=== PATIENT | male | born 1940 | race Caucasian/White ===

== ENCOUNTER 2016-03-27 17:20 | Inpatient (IN) ==
[2016-03-27] MEDS ORDERED: SOLU-MEDROL 125 MG IVP STA (17:23)
[2016-03-27] MEDS ORDERED: DUONEB NEB STA (17:24)
[2016-03-27 17:30] VITALS: BMI 19.0
[2016-03-27 17:38] LABS: BASOPHILS # (AUTO) 0.1 K/uL (0-0.2); EOSINOPHILS # (AUTO) 0.3 K/ul (0.0-0.7); EOSINOPHILS % (AUTO) 2.6 % (0.0-7.0); HEMATOCRIT 40.3 % (42.0-52.0); HEMOGLOBIN 13.2 g/dl (14.0-18.0); IMMATURE GRANULOCYTE % (AUTO) 0.4 % (0.0-5.0); LYMPHOCYTES # (AUTO) 1.2 K/uL (0.60-3.4); LYMPHOCYTES % (AUTO) 12.6 (10.0-50.0); MEAN CORPUSCULAR HGB CONC 32.8 (31.8-35.4); MEAN CORPUSCULAR VOLUME 94.6 fl (80.0-94.0); MONOCYTES # (AUTO) 0.7 K/uL (0.4-2.0); NEUTROPHILS # (AUTO) 7.4 K/ul (2.0-6.9); NEUTROPHILS % (AUTO) 76.4; PLATELET COUNT 259 10^3/uL (140-440); RED BLOOD COUNT 4.26 10^6/ul (4.70-6.10); WHITE BLOOD COUNT 9.68 K/ul (4.2-10.2)
[2016-03-27 18:14] LABS: ALBUMIN/GLOBULIN RATIO 1.21; ANION GAP 14.9; BILIRUBIN,TOTAL 0.41 mg/dL (0.00-1.20); BUN/CREATININE RATIO 19.19; CALCIUM 9.7 mg/dL (8.2-10.2); CREATININE 1.98 mg/dL (0.60-1.10); POTASSIUM 4.9 mmol/L (3.5-5.1); TOTAL PROTEIN 7.3 g/dL (5.8-8.1); TROPONIN I 0.022 ng/ml (0.0000-0.4000)
--- NOTE | 2016-03-27 18:14 | ED.PDOC ---
General ED Provider: Dr. KELSEY SARAVIA Chief Complaint: Respiratory Complaint Stated Complaint: shortness of breath Time Seen by Physician: 17:25 Mode of Arrival: Walk-In Information Source: Patient Exam Limitations: No limitations Primary Care Provider: RAY SORENSEN Nursing and Triage Documentation Reviewed and Agree: Yes Review of Systems - Review Of Systems Constitutional: Reports: Malaise Eyes: Reports: No symptoms Ears, Nose, Mouth, Throat: Reports: No symptoms Respiratory: Reports: Short of air, Wheezing Cardiac: Reports: No symptoms GI: Reports: No symptoms : Reports: No symptoms Musculoskeletal: Reports: No symptoms Skin: Reports: No symptoms Neurological: Reports: No symptoms Endocrine: Reports: No symptoms Hematologic/Lymphatic: Reports: No symptoms All Other Systems: Reviewed and Negative Past Medical History - Past Medical History Previously Healthy: No Endocrine: Reports: None Cardiovascular: Reports: None, Unknown (fast heart rate) Respiratory: Reports: COPD Hematological: Reports: None Gastrointestinal: Reports: None, Gallstones Genitourinary: Reports: Kidney stones Neuro/Psych: Reports: None Musculoskeletal: Reports: None Cancer: Reports: None - Surgical History General Surgical History: Reports: Stent (CARDIAC STENT X 2), Other ( PARATHYROID SX , SX FOR KIDNEY STONE), Unknown - Family History Family History: Reports: Unknown - Social History Smoking Status: Former smoker Hx Substance Use: No Alcohol Screening: None - Immunizations Tetanus Shot up to Date: Yes Physical Exam - Physical Exam Appearance: Well-appearing, No pain distress, Well-nourished Eyes: MORGAN, EOMI, Conjunctiva clear ENT: Ears normal, Nose normal, Oropharynx normal Respiratory: Wheezes Cardiovascular: RRR, Pulses normal, No rub, No murmur GI/: Soft, Nontender, No masses, Bowel sounds normal, No Organomegaly Musculoskeletal: Normal strength, ROM intact, No edema, No calf tenderness Skin: Warm, Dry, Normal color Neurological: Sensation intact, Motor intact, Reflexes intact, Cranial nerves intact, Alert, Oriented Psychiatric: Affect appropriate, Mood appropriate Interpretation - Radiology Interpretation Radiology Interpretation By: ED Physician Radiology Results: Negative Exam Interpreted: CXR Physician Notification - Case Discussed Physician Notified: relife Time of Notification: 19:00 Critical Care Note - Critical Care Note Total Time (mins): 0 Course - Course Hematology/Chemistry: 03/31/16 06:30 03/29/16 05:30 Orders, Labs, Meds: Lab Review 03/27/16 03/27/16 03/27/16 17:00 17:34 18:00 WBC 9.68 RBC 4.26 L Hgb 13.2 L Hct 40.3 L MCV 94.6 H MCH 31.0 MCHC 32.8 RDW Coeff of Marleni 13.6 Plt Count 259 Immature Gran % (Auto) 0.4 Neut % (Auto) 76.4 Lymph % (Auto) 12.6 Hale % (Auto) 7.0 Eos % (Auto) 2.6 Baso % (Auto) 1.0 Immature Gran # (Auto) 0.0 Neut # 7.4 H Lymph # 1.2 Hale # 0.7 Eos # 0.3 Baso # 0.1 D-Dimer 714.03 H Sodium 141 Potassium 4.9 Chloride 104 Carbon Dioxide 27 Anion Gap 14.9 BUN 38 H Creatinine 1.98 H Estimated GFR (MDRD) 33.00 BUN/Creatinine Ratio 19.19 Glucose 104 Calcium 9.7 Total Bilirubin 0.41 AST 26 ALT 35 Alkaline Phosphatase 80 Total Creatine Kinase 45 Troponin I 0.0220 B-Natriuretic Peptide 29 Total Protein 7.3 Albumin 4.0 Globulin 3.3 Albumin/Globulin Ratio 1.21 Influenza A (Rapid) Negative Influenza B (Rapid) Negative Orders Category Date Time Status ADMIT PATIENT INPATIENT .TO [facility] (MONITORED BED) ADMISSION 03/27/16 18: 15 Active EKG-(ED ONLY) Stat CARDIO 03/27/16 17:23 Completed EKG-(IP & OP ONLY) DAILY CARDIO 03/28/16 06:00 Completed EKG-(IP & OP ONLY) DAILY CARDIO 03/29/16 06:00 Completed EKG-(IP & OP ONLY) DAILY CARDIO 03/30/16 06:00 Completed NEBULIZER TREATMENT Routine CARDIO 03/27/16 18:17 Completed NEBULIZER TREATMENT Stat CARDIO 03/27/16 17:24 Completed OXYGEN Routine CARDIO 03/27/16 18:16 Completed ACTIVITY .Complete BR CARE 03/27/16 18:15 Active TELEMETRY MONITORING TELE CARE 03/27/16 18:15 Active VITAL SIGNS Q4HR CARE 03/27/16 18:15 Active REGULAR DIET DIETARY 03/27/16 Dinner Completed ED IV/MEDIPORT/POWERPORT .ONCE EMERGENCY 03/27/16 17:23 Active B-TYPE NATRIURETIC PEPTIDE Stat LAB 03/27/16 17:00 Completed CBC W/ AUTO DIFF DAILY@0600 LAB 03/28/16 01:00 Completed CBC W/ AUTO DIFF DAILY@0600 LAB 03/29/16 05:30 Completed CBC W/ AUTO DIFF Stat LAB 03/27/16 17:34 Completed COMPREHENSIVE METABOLIC PANEL DAILY@0600 LAB 03/28/16 01:00 Completed COMPREHENSIVE METABOLIC PANEL DAILY@0600 LAB 03/29/16 05:30 Completed COMPREHENSIVE METABOLIC PANEL Stat LAB 03/27/16 17:34 Completed CREATINE KINASE Q8H LAB 03/28/16 01:00 Completed CREATINE KINASE Q8H LAB 03/28/16 08:30 Completed CREATINE KINASE Stat LAB 03/27/16 17:34 Completed D-DIMER Stat LAB 03/27/16 17:00 Completed MOLECULAR GROUP A STREP Stat LAB 03/27/16 18:00 Completed RAPID FLU A/B Stat LAB 03/27/16 18:00 Completed STREP SCREEN Stat LAB 03/27/16 18:00 Completed TROPONIN I Q8H LAB 03/28/16 01:00 Completed TROPONIN I Q8H LAB 03/28/16 08:30 Completed TROPONIN I Stat LAB 03/27/16 17:34 Completed Ceftriaxone Sodium [Rocephin] 1 gm MEDS 03/28/16 09:00 Discontinued 0.9 % Sodium Chloride [Sodium Chloride] 50 ml IV DAILY Diltiazem HCl [Cardizem Cd] MEDS 03/28/16 09:00 Discontinued 120 mg PO DAILY Ipratropium/Albuterol Neb [Duoneb] MEDS 03/27/16 17:24 Discontinued 1 vial NEB ONCE STA Ipratropium/Albuterol Neb [Duoneb] MEDS 03/28/16 00:00 Discontinued 1 vial NEB RTQ6H Methylprednisolone Sod Succ/Pf [Solu-Medrol 125 mg] MEDS 03/27/16 17:23 Discontinued 125 mg IVP ONCE STA Methylprednisolone Sod Succ/Pf [Solu-Medrol 125 mg] MEDS 03/27/16 21:00 Discontinued 40 mg IVP Q12HR Metoprolol Succinate [Toprol Xl] MEDS 03/28/16 09:00 Discontinued 25 mg PO DAILY Simvastatin [Zocor] MEDS 03/28/16 09:00 Discontinued 40 mg PO DAILY Sodium Chloride 0.9% [Sodium Chloride] 1,000 ml MEDS 03/27/16 18:30 Discontinued IV 75 mls/hr CHEST, 1V AP ONLY Stat RADS 03/27/16 17:23 Completed Medications Discontinued Medications Generic Name Dose Route Start Last Admin Trade Name Freq PRN Reason Stop Dose Admin Albuterol/Ipratropium 1 vial 03/27/16 17:24 03/27/16 18:26 Duoneb NEB 03/27/16 17:25 1 vial ONCE STA Administration Albuterol/Ipratropium 1 vial 03/28/16 00:00 04/01/16 11:04 Duoneb NEB 1 vial RTQ6H LEONOR Administration Diltiazem HCl 120 mg 03/28/16 09:00 04/01/16 08:20 Cardizem Cd PO 120 mg DAILY LEONOR Administration Guaifenesin 600 mg 03/31/16 17:30 04/01/16 08:20 Mucinex PO 600 mg Q12HR LEONOR Administration Ceftriaxone Sodium 1 gm/ 50 mls @ 75 mls/hr 03/28/16 09:00 04/01/16 08:20 Sodium Chloride IV 75 mls/hr DAILY LEONOR Administration Sodium Chloride 1,000 mls @ 75 mls/hr 03/27/16 18:30 03/29/16 13:19 Sodium Chloride IV 75 mls/hr .[id number] LEONOR Administration Methylprednisolone Sodium Succinate 125 mg 03/27/16 17:23 03/27/16 18:25 Solu-Medrol 125 Mg IVP 03/27/16 17:24 125 mg ONCE STA Administration Methylprednisolone Sodium Succinate 40 mg 03/27/16 21:00 03/27/16 21:45 Solu-Medrol 125 Mg IVP 40 mg Q12HR LEONOR Administration Methylprednisolone Sodium Succinate 40 mg 03/28/16 09:00 03/28/16 08:31 Solu-Medrol 40 Mg IVP 40 mg Q12HR LEONOR Administration Methylprednisolone Sodium Succinate 125 mg 03/28/16 21:00 03/28/16 21:28 Solu-Medrol 40 Mg IVP 03/29/16 10:00 125 mg Q12HR LEONOR Administration Methylprednisolone Sodium Succinate 125 mg 03/29/16 09:00 03/29/16 08:44 Solu-Medrol 125 Mg IVP 125 mg Q12HR LEONOR Administration Methylprednisolone Sodium Succinate 70 mg 03/29/16 21:00 Solu-Medrol 125 Mg IVP Q12HR LEONOR Methylprednisolone Sodium Succinate 125 mg 03/29/16 21:00 03/29/16 22:15 Solu-Medrol 125 Mg IVP 03/29/16 21:01 125 mg ONCE ONE Administration Methylprednisolone Sodium Succinate 70 mg 03/30/16 09:00 Solu-Medrol 125 Mg IVP Q12HR LEONOR Methylprednisolone Sodium Succinate 75 mg 03/30/16 08:43 03/31/16 13:09 Solu-Medrol 125 Mg IVP 75 mg Q8HR LEONOR Administration Metoprolol Succinate 25 mg 03/28/16 09:00 04/01/16 08:20 Toprol Xl PO 25 mg DAILY LEONOR Administration Omeprazole 20 mg 03/28/16 07:30 04/01/16 05:34 Prilosec PO 20 mg QDAC LEONOR Administration Prednisone 20 mg 03/31/16 17:30 04/01/16 08:24 Prednisone PO 20 mg BIDWM LEONOR Administration Fluticasone/Salmeterol 1 puff 03/28/16 21:00 04/01/16 08:20 Advair 250-50 Diskus IH 1 puff BID LEONOR Administration Simvastatin 40 mg 03/28/16 09:00 04/01/16 08:21 Zocor PO 40 mg DAILY LEONOR Administration Sodium Chloride 1 syr 03/30/16 05:00 04/01/16 05:34 Saline Flush IVF 1 syr Q8HR LEONOR Administration Sodium Chloride 1 syr 03/29/16 21:52 03/31/16 13:10 Saline Flush IVF 1 syr PRN PRN Administration keep IV patent Vital Signs: Temp Pulse Resp BP Pulse Ox 03/27/16 17:22 98.3 F 124 H 28 H 134/82 94 L Departure - Departure Time of Disposition: 12:00 Disposition: ADMITTED INPATIENT Discharge Problem: COPD exacerbation Condition: Good Pt referred to PMD for follow-up: No Allergies/Adverse Reactions: Allergies nitroglycerin Adverse Reaction (Intermediate, Verified 03/27/16 17:36) Unknown zolpidem [From Ambien] Adverse Reaction (Intermediate, Verified 03/27/16 17:36) Dizziness PATIENT WAS CONFUSED, HALLUCINATED, AND WAS AGITATED. Home Medications: Ambulatory Orders Metoprolol Succinate [Toprol Xl] 1 tab PO DAILY 12/31/13 Omeprazole Magnesium [Prilosec Otc] 1 tab PO DAILY 12/31/13 Simvastatin [Zocor] 1 tab PO DAILY 12/31/13 Diltiazem HCl [Cardizem Cd] 120 mg PO DAILY 02/06/16 Fluticasone/Salmeterol 250/50 [Advair 250-50 Diskus] 1 puff IH BID #1 02/09/16 Guaifenesin/Codeine Phosphate [Robitussin AC Syrup] 10 ml PO Q6H PRN #240 ml Ipratropium [place] [Atrovent Hfa] 1 puff IH BID PRN #1 hfa.aer.ad 03/14/16 Albuterol Sulfate [Proair Hfa] 2 puff IH QID PRN #1 puff 04/01/16 Ipratropium/Albuterol Neb [Duoneb] 1 vial NEB RTQ6H #1 vial.neb 04/01/16
[2016-03-27 18:42] LABS: FLU INTERNAL QC INTERNAL QC VALID; RAPID FLU A NEGATIVE (NEGATIVE); RAPID FLU B NEGATIVE (NEGATIVE)
--- NOTE | 2016-03-27 18:47 | DI ---
EXAM: Chest, one-view HISTORY: Cough FINDINGS: Cardiac and mediastinal contours are normal. Pulmonary vasculature is normal. Lungs are clear. The lungs are markedly hyperexpanded. Bony thorax shows no acute findings. IMPRESSION: Chronic obstructive pulmonary disease. No acute findings.
[2016-03-27] MEDS ORDERED: SOLU-MEDROL 125 MG IVP SCH (21:00)
[2016-03-27] MEDS ORDERED: SOLU-MEDROL 125 MG ONE (21:18)
[2016-03-27] MEDS: SODIUM CHLORIDE 1,000 ML IV SCH (22:53)
[2016-03-27] MEDS: DUONEB NEB SCH (23:54)
[2016-03-28 01:26] LABS: BASOPHILS % (AUTO) 0.5 % (0.0-3.0); HEMATOCRIT 36.5 % (42.0-52.0); HEMOGLOBIN 11.7 g/dl (14.0-18.0); IMMATURE GRANULOCYTE % (AUTO) 0.5 % (0.0-5.0); LYMPHOCYTES # (AUTO) 0.5 K/uL (0.60-3.4); LYMPHOCYTES % (AUTO) 7.3 (10.0-50.0); MEAN CORPUSCULAR HEMOGLOBIN 30.7 pg (27.0-31.0); MEAN CORPUSCULAR HGB CONC 32.1 (31.8-35.4); MEAN CORPUSCULAR VOLUME 95.8 fl (80.0-94.0); MONOCYTES # (AUTO) 0.1 K/uL (0.4-2.0); MONOCYTES % (AUTO) 0.8 (0-10); NEUTROPHILS # (AUTO) 5.8 K/ul (2.0-6.9); NEUTROPHILS % (AUTO) 90.9; PLATELET COUNT 218 10^3/uL (140-440); RED BLOOD COUNT 3.81 10^6/ul (4.70-6.10); WHITE BLOOD COUNT 6.34 K/ul (4.2-10.2)
[2016-03-28 01:58] LABS: ALBUMIN 3.3 g/dL (3.4-5.0); ALBUMIN/GLOBULIN RATIO 1.22; BILIRUBIN,TOTAL 0.38 mg/dL (0.00-1.20); BUN/CREATININE RATIO 21.6; CALCIUM 8.8 mg/dL (8.2-10.2); CREATININE 1.99 mg/dL (0.60-1.10)
[2016-03-28 02:05] LABS: TROPONIN I 0.021 ng/ml (0.0000-0.4000)
[2016-03-28] MEDS: DUONEB NEB SCH ×4 (05:28→23:44)
[2016-03-28] MEDS: ROCEPHIN 1 GM in SODIUM CHLORIDE 50 ML IV SCH (08:04)
[2016-03-28] MEDS: ZOCOR PO SCH (08:04)
[2016-03-28] MEDS: CARDIZEM CD PO SCH (08:04)
[2016-03-28] MEDS: PRILOSEC PO SCH (08:04)
[2016-03-28] MEDS: TOPROL XL PO SCH (08:04)
[2016-03-28] MEDS ORDERED: NON-FORMULARY MEDICATION (Omeprazole Magnesium [Prilosec Otc] 1 TAB) PO SCH (09:00)
[2016-03-28] MEDS ORDERED: SOLU-MEDROL 40 MG IVP SCH ×2 (09:00→21:00)
[2016-03-28 09:45] LABS: TROPONIN I 0.023 ng/ml (0.0000-0.4000)
[2016-03-28] MEDS: SODIUM CHLORIDE 1,000 ML IV SCH (11:45)
[2016-03-28] MEDS ORDERED: SOLU-MEDROL 125 MG ONE (21:25)
[2016-03-28] MEDS: ADVAIR 250-50 DISKUS IH SCH (21:29)
[2016-03-29] MEDS: DUONEB NEB SCH ×4 (05:03→22:07)
[2016-03-29] MEDS: PRILOSEC PO SCH (05:41)
[2016-03-29 06:09] LABS: BASOPHILS % (AUTO) 0.1 % (0.0-3.0); HEMATOCRIT 29.7 % (42.0-52.0); HEMOGLOBIN 9.4 g/dl (14.0-18.0); IMMATURE GRANULOCYTE % (AUTO) 0.6 % (0.0-5.0); LYMPHOCYTES # (AUTO) 0.6 K/uL (0.60-3.4); LYMPHOCYTES % (AUTO) 4.3 (10.0-50.0); MEAN CORPUSCULAR HEMOGLOBIN 30.4 pg (27.0-31.0); MEAN CORPUSCULAR HGB CONC 31.6 (31.8-35.4); MEAN CORPUSCULAR VOLUME 96.1 fl (80.0-94.0); MONOCYTES # (AUTO) 0.2 K/uL (0.4-2.0); MONOCYTES % (AUTO) 1.6 (0-10); NEUTROPHILS # (AUTO) 12.7 K/ul (2.0-6.9); NEUTROPHILS % (AUTO) 93.4; PLATELET COUNT 216 10^3/uL (140-440); RED BLOOD COUNT 3.09 10^6/ul (4.70-6.10); WHITE BLOOD COUNT 13.63 K/ul (4.2-10.2)
[2016-03-29 06:34] LABS: ALBUMIN 2.9 g/dL (3.4-5.0); ALBUMIN/GLOBULIN RATIO 1.26; ANION GAP 9.7; BILIRUBIN,TOTAL 0.18 mg/dL (0.00-1.20); BUN/CREATININE RATIO 34.05; CALCIUM 8.4 mg/dL (8.2-10.2); CREATININE 1.38 mg/dL (0.60-1.10); POTASSIUM 4.7 mmol/L (3.5-5.1); TOTAL PROTEIN 5.2 g/dL (5.8-8.1)
[2016-03-29] MEDS: ADVAIR 250-50 DISKUS IH SCH ×2 (08:44→20:18)
[2016-03-29] MEDS: TOPROL XL PO SCH (08:45)
[2016-03-29] MEDS: ZOCOR PO SCH (08:45)
[2016-03-29] MEDS: ROCEPHIN 1 GM in SODIUM CHLORIDE 50 ML IV SCH (08:45)
[2016-03-29] MEDS: CARDIZEM CD PO SCH (08:45)
[2016-03-29] MEDS ORDERED: SOLU-MEDROL 125 MG IVP SCH ×2 (09:00→21:00)
[2016-03-29] MEDS: SODIUM CHLORIDE 1,000 ML IV SCH ×2 (13:19)
[2016-03-29] MEDS ORDERED: SOLU-MEDROL 125 MG IVP ONE (21:00)
[2016-03-30] MEDS: DUONEB NEB SCH ×4 (05:20→22:20)
[2016-03-30] MEDS: PRILOSEC PO SCH (05:38)
[2016-03-30] MEDS: ZOCOR PO SCH (08:28)
[2016-03-30] MEDS: ADVAIR 250-50 DISKUS IH SCH ×2 (08:28→20:07)
[2016-03-30] MEDS: TOPROL XL PO SCH (08:28)
[2016-03-30] MEDS: CARDIZEM CD PO SCH (08:29)
[2016-03-30] MEDS: ROCEPHIN 1 GM in SODIUM CHLORIDE 50 ML IV SCH (08:29)
[2016-03-30] MEDS ORDERED: SOLU-MEDROL 125 MG IVP SCH (09:00)
[2016-03-30] MEDS: SOLU-MEDROL 125 MG IVP SCH ×2 (12:52→20:07)
[2016-03-31] MEDS: DUONEB NEB SCH ×4 (05:29→22:15)
[2016-03-31] MEDS: PRILOSEC PO SCH (05:35)
[2016-03-31] MEDS: SOLU-MEDROL 125 MG IVP SCH ×2 (05:43→13:09)
[2016-03-31 07:46] LABS: HEMATOCRIT 29.9 % (42.0-52.0); HEMOGLOBIN 9.4 g/dl (14.0-18.0); IMMATURE RETIC FRACTION 16.8; RETICULOCYTE % 1.71 %
[2016-03-31] MEDS: TOPROL XL PO SCH (08:34)
[2016-03-31] MEDS: CARDIZEM CD PO SCH (08:34)
[2016-03-31] MEDS: ADVAIR 250-50 DISKUS IH SCH ×2 (08:34→20:10)
[2016-03-31] MEDS: ZOCOR PO SCH (08:34)
[2016-03-31] MEDS: ROCEPHIN 1 GM in SODIUM CHLORIDE 50 ML IV SCH (08:34)
[2016-03-31 08:46] LABS: FERRITIN 541.52 ng/mL (21.81-274.66); FOLATE 9.8 ng/mL (3.1-20.5)
[2016-03-31] MEDS ORDERED: PREDNISONE ONE (17:13)
[2016-03-31] MEDS: MUCINEX PO SCH (17:15)
[2016-03-31] MEDS: PREDNISONE PO SCH (17:22)
[2016-04-01] MEDS: DUONEB NEB SCH ×2 (05:04→11:04)
[2016-04-01] MEDS: PRILOSEC PO SCH (05:34)
[2016-04-01] MEDS: ROCEPHIN 1 GM in SODIUM CHLORIDE 50 ML IV SCH (08:20)
[2016-04-01] MEDS: ADVAIR 250-50 DISKUS IH SCH (08:20)
[2016-04-01] MEDS: TOPROL XL PO SCH (08:20)
[2016-04-01] MEDS: CARDIZEM CD PO SCH (08:20)
[2016-04-01] MEDS: MUCINEX PO SCH (08:20)
[2016-04-01] MEDS: ZOCOR PO SCH (08:21)
[2016-04-01] MEDS: PREDNISONE PO SCH (08:24)
[2016-04-01 10:04] VITALS: BP 123/65; TEMP 97.8
--- NOTE | 2016-04-01 12:49 | HP ---
SOURCE: The source of this information is prior knowledge of the patient, review of his current chart as well as discussion with he and his ; all considered reliable. PATIENT PROFILE: Mr. Estrada is a 75-year-old male resident of [place]; he was cooperative. 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 He has chronic respiratory failure and uses continuous oxygen. He has coronary artery disease. He was hospitalized here February 04 for a similar presentation; treated with significant levels of steroids. He slowly improved over 3 to 4 days. These were weaned slowly; he seemed initially to tolerate that. Approximately on the 13 of March he started developing increasing cough and wheeze; he presented to the ER where he was given brief steroids again. This helped briefly; then he presented back to the ER yesterday feeling like he could not get his breath. He had chest x-rays that showed only emphysema. He was admitted for COPD exacerbation. On 40 mg of steroids he had seen little improvement yet. He has a cough; occasionally productive, nonbloody. He has no exertional chest pain, palpitations or ankle edema. PAST HISTORY: CHILDHOOD: Unremarkable. ALLERGIES/INTOLERANCE: DEMEROL (nausea, vomiting and flushing), NITROGLYCERIN CURRENT MEDICATIONS: 1. Spiriva 18 mcg inhaled a day 2. Bactrim DS b.i.d. 3. Zocor 40 mg a day 4. Prilosec 20 mg a day 5. Toprol 25 mg XR a day 6. Duonebs q.6hr p.r.n. 7. Atrovent HFA one puff b.i.d. p.r.n. 8. Robitussin AC 10 cc q.6hr p.r.n. 9. Advair 250/50 one inhalation twice a day 10. Cardizem 120 a day 11. ProAir HFA two puffs q.i.d. and two puffs q.4hr p.r.n. HOSPITALIZATIONS/SURGERIES/PROCEDURES: [facility] admissions include: 05/07 through 05/12/12 COPD exacerbation and this admission with Dr. Mckeon. 05/22 through 05/31/14 for shortness of breath; 10/07 through 10/12/15 for COPD; 02/05/16 as noted. [facility] includes: 03/25 through 03/26 for chest pain; 03/16 through 03/19/07 for cardiac stent; 04/13 through , Dr. Mckeon for chest pain; 09/12 through 09/14/09 for cough and chest pain; through 10/09/11 Dr. Yanes for cath and stents; 02/09 through 02/11/12 for chest pain; 08/16 through 08/18/14 for chest pain. He has had kidney stone interventions in on the right side at least twice; the heart cath and stent Dr. Yanes, [facility], 03/18/07; the tilt study 2007; EGD with hiatal hernia, Dr. Demar Eng, 09/15/07; colonoscpy with polyps and hemorrhoids, Dr. Demar Eng, 09/15/07; colonoscopy with polyps, hemorrhoids, [facility], Dr. Benz, 11/27/10; heart cath and stent, Dr. Yanes, [facility], 10/08/11; colonoscopy with polyps and hemorrhoids, Velasquez, on 01/04/14 to repeat in 3 years. Parathyroid surgery 1984. FAMILY HISTORY: Kidney failure in father, diabetes in two brothers, pancreatic cancer in sister , unknown cancer in maternal grandmother and breast cancer in sister. HABITS: Smoker, age 20, one pack per day. Allegedly smoking less now but has never quit. 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 REVIEW OF SYSTEMS: GENERAL: No fall. No fever. INTEGUMENT: No rash or wounds. HEENT: No sore throat, nasal congestion. NECK: No mass or tenderness. CHEST: No hemoptysis. CARDIOVASCULAR: No exertional chest pain or ankle edema. GI: No nausea, vomiting, diarrhea, melena, hematochezia. : No dysuria. MUSCULOSKELETAL/NEUROLOGIC: No swollen, red or tender joints. NEUROLOGIC: No weakness of extremities, facial drooping, speech slurring PSYCHIATRIC: His mood has been okay; he denies suicidal ideation. PHYSICAL EXAMINATION: VITALS: Height 68", temperature 97.5, pulse 105, BP 138/63, respirations 20. Weight 125; comparable to last admission. GENERAL: Appropriate for age, no acute distress. INTEGUMENT: Nonicteric sclerae. Mucous membranes moist. No ankle edema. HEENT: Facial symmetry. Pupils equal, round, extraocular movements intact. NECK: No visible lymphadenopathy, thyromegaly, mass seen or felt and supple. CHEST: Markedly diminished, somewhat barreled but clear. CARDIOVASCULAR: Regular, S1, S2 without murmur. No carotid bruit. Distal pulse intact. GI: No rebound, guarding, mass or tenderness. MUSCULOSKELETAL/NEUROLOGIC: Symmetric use of extremities; pediatric associate are equal. Facial symmetry. Speech is clear. Nailer Machine are equal. He was not ambulated. ASSESSMENT/PROBLEM LIST: 0. 75-year-old white male of advanced age. 1. Allergies/intolerances - see above. 2. Procedural history - see above. 3. Family history - see above. 4. History of urolithiasis. 5. Tobacco/nicotine abuse/addiction. 6. History of parathyroid adenoma - removed. 7. History of chronic intermittent rhinitis. 8. COPD/emphysema pattern. 9. History of atrial flutter/rate control or converted. 10. History of positive tilt study of questionable significance. 11. Degenerative joint disease - diffuse and mild. 12. Coronary artery disease with post stents. 13 Hiatal hernia. 14. Gastroesophageal reflux. 15. Colon polyps by colonoscopy. 16. Hemorrhoid disease by colonoscopy. 17. Hyperlipidemia. 18. Macrocytosis - normal B12 and Folate. 19. Dysfunctional gallbladder - conservatively follow. 20. Chronic respiratory failure with oxygen replacement. 21. Steroid induced hyperglycemia - usually mild. REASON FOR ADMISSION: # Shortness of breath # COPD exacerbation suspect PLAN: 1. Watch labs particularly sugar; cover if it becomes necessary. 2. IV - several medications; and nebulized bronchodilators. 3. High dose steroids at least for a couple of doses. 4. Already I have told him I think it is time for him to meet with Dr. Matthews and review his emphysema in general. 5. Discharge planning from the onset is home but only when better. MTDD
--- NOTE | 2016-04-03 14:00 | DS ---
SOURCE: The source of this information is prior knowledge of the patient, review of his current chart as well as discussion with he and his ; all considered reliable. PATIENT PROFILE: Mr. Estrada is a 75-year-old male resident of [place]; he was cooperative. 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 He has chronic respiratory failure and uses continuous oxygen. He has coronary artery disease. He was hospitalized here February 04 for a similar presentation; treated with significant levels of steroids. He slowly improved over 3 to 4 days. These were weaned slowly; he seemed initially to tolerate that. Approximately on the 13 of March he started developing increasing cough and wheeze; he presented to the ER where he was given brief steroids again. This helped briefly; then he presented back to the ER yesterday feeling like he could not get his breath. He had chest x-rays that showed only emphysema. He was admitted for COPD exacerbation. On 40 mg of steroids he had seen little improvement yet. He has a cough; occasionally productive, nonbloody. He has no exertional chest pain, palpitations or ankle edema. PAST HISTORY: CHILDHOOD: Unremarkable. ALLERGIES/INTOLERANCE: DEMEROL (nausea, vomiting and flushing), NITROGLYCERIN CURRENT MEDICATIONS: 1. Spiriva 18 mcg inhaled a day 2. Bactrim DS b.i.d. 3. Zocor 40 mg a day 4. Prilosec 20 mg a day 5. Toprol 25 mg XR a day 6. Duonebs q.6hr p.r.n. 7. Atrovent HFA one puff b.i.d. p.r.n. 8. Robitussin AC 10 cc q.6hr p.r.n. 9. Advair 250/50 one inhalation twice a day 10. Cardizem 120 a day 11. ProAir HFA two puffs q.i.d. and two puffs q.4hr p.r.n. HOSPITALIZATIONS/SURGERIES/PROCEDURES: [facility] admissions include: 05/07 through 05/12/12 COPD exacerbation and this admission with Dr. Mckeon. 05/22 through 05/31/14 for shortness of breath; 10/07 through 10/12/15 for COPD; 02/05/16 as noted. [facility] includes: 03/25 through 03/26 for chest pain; 03/16 through 03/19/07 for cardiac stent; 04/13 through , Dr. Mckeon for chest pain; 09/12 through 09/14/09 for cough and chest pain; through 10/09/11 Dr. Yanes for cath and stents; 02/09 through 02/11/12 for chest pain; 08/16 through 08/18/14 for chest pain. He has had kidney stone interventions in on the right side at least twice; the heart cath and stent Dr. Yanes, [facility], 03/18/07; the tilt study 2007; EGD with hiatal hernia, Dr. Demar Eng, 09/15/07; colonoscpy with polyps and hemorrhoids, Dr. Demar Eng, 09/15/07; colonoscopy with polyps, hemorrhoids, Velasquez, Dr. Benz, 11/27/10; heart cath and stent, Dr. Yanes, [facility], 10/08/11; colonoscopy with polyps and hemorrhoids, Vel[facility]quez, on 01/04/14 to repeat in 3 years. Parathyroid surgery 1984. FAMILY HISTORY: Kidney failure in father, diabetes in two brothers, pancreatic cancer in sister , unknown cancer in maternal grandmother and breast cancer in sister. HABITS: Smoker, age 20, one pack per day. Allegedly smoking less now but has never quit. 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 REVIEW OF SYSTEMS: GENERAL: No fall. No fever. INTEGUMENT: No rash or wounds. HEENT: No sore throat, nasal congestion. NECK: No mass or tenderness. CHEST: No hemoptysis. CARDIOVASCULAR: No exertional chest pain or ankle edema. GI: No nausea, vomiting, diarrhea, melena, hematochezia. : No dysuria. MUSCULOSKELETAL/NEUROLOGIC: No swollen, red or tender joints. NEUROLOGIC: No weakness of extremities, facial drooping, speech slurring PSYCHIATRIC: His mood has been okay; he denies suicidal ideation. PHYSICAL EXAMINATION: VITALS: Height 68", temperature 97.5, pulse 105, BP 138/63, respirations 20. Weight 125; comparable to last admission. GENERAL: Appropriate for age, no acute distress. INTEGUMENT: Nonicteric sclerae. Mucous membranes moist. No ankle edema. HEENT: Facial symmetry. Pupils equal, round, extraocular movements intact. NECK: No visible lymphadenopathy, thyromegaly, mass seen or felt and supple. CHEST: Markedly diminished, somewhat barreled but clear. CARDIOVASCULAR: Regular, S1, S2 without murmur. No carotid bruit. Distal pulse intact. GI: No rebound, guarding, mass or tenderness. MUSCULOSKELETAL/NEUROLOGIC: Symmetric use of extremities; dragsaw operator are equal. Facial symmetry. Speech is clear. Counter Cutter are equal. He was not ambulated. ASSESSMENT/PROBLEM LIST: 0. 75-year-old white male of advanced age. 1. Allergies/intolerances - see above. 2. Procedural history - see above. 3. Family history - see above. 4. History of urolithiasis. 5. Tobacco/nicotine abuse/addiction. 6. History of parathyroid adenoma - removed. 7. History of chronic intermittent rhinitis. 8. COPD/emphysema pattern. 9. History of atrial flutter/rate control or converted. 10. History of positive tilt study of questionable significance. 11. Degenerative joint disease - diffuse and mild. 12. Coronary artery disease with post stents. 13 Hiatal hernia. 14. Gastroesophageal reflux. 15. Colon polyps by colonoscopy. 16. Hemorrhoid disease by colonoscopy. 17. Hyperlipidemia. 18. Macrocytosis - normal B12 and Folate. 19. Dysfunctional gallbladder - conservatively follow. 20. Chronic respiratory failure with oxygen replacement. 21. Steroid induced hyperglycemia - usually mild. REASON FOR ADMISSION: # Shortness of breath # COPD exacerbation suspect HOSPITAL COURSE: He was treated with high doses of IV steroids, DUO NEBS and chest percussion. He gradually improved was weaned to high dose oral steroids and tolerated this well. His blood sugars did show a slight bump but not significant levels. He did not smoke while here. His white count started 9 and went as high as 13 with steroids; hgb 13, dropped to 9.4 there is never signs of bleeding; his substrate analysis showed normal retic count and low iron binding capacity normal iron sat; Ferritin was elevated; given the impression this is anemia chronic illness. D-dimer is elevated 714, Chemistries showed initial GFR at 33 that went up to 50; initial potassium 5 that went to 4.7. Cardiac enzymes were serial negative, proteins and albumins ran low. Vitamin B12 and Folate were normal. Influenza A and B were negative. Chest x-ray showed only chronic changes. Though we had multiple difficulties I think this once again be followed as an outpatient; more interesting in him seeing Dr. Dioni Mccurdy and getting pulmonary review. DISCHARGE ASSESSMENT/PROBLEM LIST (CHANGED FROM ADMISSION): # Shortness of breath- related to # COPD exacerbation # Anemia - suggestion with chronic illness components and some degree of delusion # Steroid induced hyperglycemia # Coronary artery disease- Fortunately doing well PLAN: 1. Discharge 2. Followup in one week 3. Medications A. Same as admit B. Prednisone 20mg twice a day for 4 days and 20mg a day for 4 days and 10mg a da- Sent to the drug store from the office 4. Continue doing NEBS at home; which will allow him not to use his Spiriva Prognosis: Guarded CONDITION: Stable improving. MTDD
--- NOTE | 2016-04-03 14:30 | PN ---
DATE OF VISIT: 03/31/16 SUBJECTIVE: He was admitted with increased shortness of breath with baseline emphysema/ chronic respiratory failure which is hypoxic in nature and oxygen supported. He still has cough, some productive sputum and shortness of breath with exertion though he says that it is significant better then when he was admitted. He did not sleep well last night; his appetite is reasonable. OBJECTIVE: V/S: Temperature 98, pulse 87, respiratory 20, blood pressure 121/61 and all these were stable in pattern for the last 24 hours. GENERAL: No acute distress. CHEST: Diminished no active wheeze or dullness. CARDIOVASCULAR: S1 and S2 regular with peripheral edema LABS/X-RAYS: White count 9.4 compared 9.3; retic 1.71 and total iron binding is low but iron is 129; iron sat is normal at 62, Ferritin is elevated at 541 and B12 and Folate are normal. ASSESSMENT: # Shortness of breath-primary exacerbation of COPD # COPD exacerbation # COPD # Hyperglycemia with steroids # Coronary artery disease- Asymptomatic for angina # Anemia-9.4 with out signs of bleeding and dilutional component from his IV. Appears to have adequate substrates and this is probably secondary to chronic illness. # Acute renal insufficiency- No improvement GFR from 33 to 50 PLAN: 1. Will add chest percussion and Mucinex to try wean from IV steroids over to oral 2. Encouraged him to be more out of the bed today. 3. Maybe discharged tomorrow MTDDeonte
--- NOTE | 2016-04-03 14:39 | PN ---
DATE OF VISIT: 03/30/16 SUBJECTIVE: Mr. Estrada was admitted with increased shortness of breath; he has emphysema with chronic respiratory failure of hypoxic nature supported with home oxygen. He felt to be an exacerbation; chest x-ray was normal. He is admitted for his usual; high dose steroids. He denies shortness of breath was able to rest last night. Occasional paroxysm cough. No chest pain. OBJECTIVE: V/S: Temperature 97.6, pulse 60, respiratory rate 20 and blood pressure 113/ 64. GENERAL: No obvious distress CHEST: Barrel diminished, clear CARDIOVASCULAR: Regular, distant without murmur. Peripheral edema. LABS/X-RAYS: Hct 9.3 versus 9.5 ASSESSMENT: # Shortness of breath-primary exacerbation of COPD # COPD exacerbation # COPD # Hyperglycemia with steroids # Coronary artery disease- Asymptomatic for angina # Anemia-9.4 with out signs of bleeding and dilutional component from his IV # Acute renal insufficiency- No improvement GFR from 33 to 50 PLAN: 1. Substrate analysis of his anemia 2. Weaning his IV steroids and over to oral as soon as feasible. MTDD
--- NOTE | 2016-04-03 15:05 | PN ---
DATE OF VISIT: 03/29/16 SUBJECTIVE: Mr. Estrada was admitted with increasing shortness of breath; baseline significant emphysema chronic respiratory failure for oxygen support for hypoxia. Initial 40mg steroid did not seem improve; we gave 125mg last night and he feels better today. He slept with less cough; he has had appetite today and at least one bowel movement that was normal in color and consistency. OBJECTIVE: V/S: Temperature 98, pulse 96, respiratory rate 20 and blood pressure 126/66 GENERAL: No obvious distress. CHEST: Clear and markedly diminished; slighted barrelled CARDIOVASCULAR: S1 and S2 without murmur peripheral edema LABS/X-RAYS: WBC 13.6, hgb 9.4, chemistry with BUN 47, creatinine 1.38 and sugar 155. ASSESSMENT: # Shortness of breath-primary exacerbation of COPD # COPD exacerbation # COPD # Hyperglycemia with steroids # Coronary artery disease- Asymptomatic for angina # Anemia-9.4 with out signs of bleeding and dilutional component from his IV # Acute renal insufficiency- No improvement GFR from 33 to 50 PLAN: 1. Wean IV 2. Begin to lower steroids tomorrow 3. Continue to follow labs. May need to evaluate the anemia more thoroughly. MTDD
== END 2016-04-01 14:34 | disposition home or self-care (01) | DRG 191 ==
LOC: ED 17:20 → MEDSURG A 19:04
PROVIDERS: ADMIT Family Medicine; ATTEND Family Medicine
DX: J44.1 Chronic obstructive pulmonary disease with (acute) exacerbation (principal); R44.3 Hallucinations, unspecified; R73.9 Hyperglycemia, unspecified; T38.0X5A Adverse effect of glucocorticoids and synthetic analogues, initial encounter; R06.02 Shortness of breath; I25.10 Atherosclerotic heart disease of native coronary artery without angina pectoris; D64.9 Anemia, unspecified; N28.9 Disorder of kidney and ureter, unspecified; R42 Dizziness and giddiness; R79.1 Abnormal coagulation profile; R45.1 Restlessness and agitation; F17.210 Nicotine dependence, cigarettes, uncomplicated; Z79.899 Other long term (current) drug therapy; Z99.81 Dependence on supplemental oxygen; Y92.230 Patient room in hospital as the place of occurrence of the external cause
CPT/HCPCS: 36415; 80053; 82550; 82607; 82728; 82746; 83540; 83550; 83880; 84484; 85014; 85018; 85025; 85045; 85379; 87651; 87804; 87880; 93005; 93010; 94640; 94667; 94668; 94761; 96374; 99284

== ENCOUNTER 2016-07-17 12:49 | Outpatient (CLI) | payer OTHER ==
--- NOTE | 2016-07-17 13:47 | DEXA ---
EXAM: Bone density HISTORY: Chronic systemic steroid use COMPARISON: None TECHNIQUE: Digital images of the thoracolumbar spine and hips were provided and calculation of bone density was obtained. FINDINGS: Digital images demonstrate no compression deformities of the thoracolumbar spine. DEXA scan of the lumbar spine is of good quality. The total BMD equals 0.869 grams per square centimeter. T-score is - 2.9 and Z-score of - 1.6. DEXA of the hips was performed and of good quality. Total bone marrow density of 0.628 grams per square centimeter. T score is - 3.3 and Z-score of - 1.9. IMPRESSION: Bone density of the hips and lumbar spine demonstrate osteoporosis of the hips and spin e by WHO criteria. FRAX calculation tool demonstrates 10-year major osteoporotic fracture risk of 19.3% and hip fractur e risk of 14.2%. T score greater than -1 is normal T score -1 to -2.5 is osteopenia T score less than - 2.5 is osteoporosis
== END 2016-07-17 12:50 | disposition home or self-care (01) ==
LOC: RAD 12:49
PROVIDERS: ATTEND Family Medicine
DX: Z79.52 Long term (current) use of systemic steroids (principal)

== ENCOUNTER 2016-07-22 08:54 | Outpatient (CLI) | payer OTHER ==
[2016-07-22 09:15] VITALS: BP 144/88; TEMP 97.1
[2016-07-22] MEDS: PROLIA SUBCUT STA (09:19)
== END 2016-07-22 08:55 | disposition home or self-care (01) ==
LOC: OPMED 08:54
PROVIDERS: ATTEND Family Medicine
DX: M81.0 Age-related osteoporosis without current pathological fracture (principal)
CPT/HCPCS: 96372

== ENCOUNTER 2016-12-23 10:52 | Emergency (ER) ==
[2016-12-23 10:59] VITALS: BP 152/79; TEMP 97.2; BMI 19.4
[2016-12-23] MEDS ORDERED: SOLU-MEDROL 125 MG IVP STA (11:03)
[2016-12-23] MEDS ORDERED: DUONEB NEB STA (11:04)
[2016-12-23 11:14] LABS: ABG PCO2 41.5 mmHg (35-45); ABG PH 7.392 (7.35-7.45)
[2016-12-23 11:15] LABS: ABG BASE EXCESS 0 (-2.0-2.0); ABG HCO3 25.2 (22.0-26.0); ABG TCO2 26 (22.0-28.0)
[2016-12-23 11:16] LABS: BASOPHILS % (AUTO) 0.3 % (0.0-3.0); EOSINOPHILS # (AUTO) 0.1 K/ul (0.0-0.7); EOSINOPHILS % (AUTO) 1.5 % (0.0-7.0); HEMATOCRIT 42.2 % (42.0-52.0); HEMOGLOBIN 13.9 g/dl (14.0-18.0); IMMATURE GRANULOCYTE % (AUTO) 0.3 % (0.0-5.0); LYMPHOCYTES # (AUTO) 1.5 K/uL (0.60-3.4); LYMPHOCYTES % (AUTO) 17.2 (10.0-50.0); MEAN CORPUSCULAR HEMOGLOBIN 31.3 pg (27.0-31.0); MEAN CORPUSCULAR HGB CONC 32.9 (31.8-35.4); MONOCYTES # (AUTO) 0.5 K/uL (0.4-2.0); MONOCYTES % (AUTO) 5.6 (0-10); NEUTROPHILS # (AUTO) 6.4 K/ul (2.0-6.9); NEUTROPHILS % (AUTO) 75.1; PLATELET COUNT 182 10^3/uL (140-440); RED BLOOD COUNT 4.44 10^6/ul (4.70-6.10); WHITE BLOOD COUNT 8.58 K/ul (4.2-10.2)
[2016-12-23 11:44] LABS: ALANINE AMINOTRANSFERASE 14 U/L (12-78); ALBUMIN 3.4 g/dL (3.4-5.0); ALBUMIN/GLOBULIN RATIO 1.13; ALKALINE PHOSPHATASE 52 U/L (56-119); ANION GAP 9.3; ASPARTATE AMINO TRANSFERASE 12 U/L (15-37); BILIRUBIN,TOTAL 0.65 mg/dL (0.00-1.20); BLOOD UREA NITROGEN 27 mg/dL (7-18); BUN/CREATININE RATIO 23.89; CALCIUM 8.8 mg/dL (8.2-10.2); CARBON DIOXIDE 32 mmol/L (23-31); CHLORIDE 107 mmol/L (98-107); CREATININE 1.13 mg/dL (0.60-1.10); GLUCOSE 121 mg/dL (82-115); POTASSIUM 3.3 mmol/L (3.5-5.1); SODIUM 145 mmol/L (136-145); TOTAL PROTEIN 6.4 g/dL (5.8-8.1)
[2016-12-23 11:45] LABS: CREATINE KINASE 26 U/L
--- NOTE | 2016-12-23 11:49 | DI ---
Exam: Single x-ray of the chest. Comparison: 03/27/2016. Reason for exam: Short of air. FINDINGS: Moderate to severe emphysematous disease is seen throughout the lung parenchyma. No obvio us pneumothorax, focal consolidation, or pleural effusion. The cardiac silhouette is not enlarged. Operative changes are seen in the neck. Impression: Imaging findings are most consistent with chronic obstructive pulmonary disease /emphyse ma without evidence of focal consolidation.
--- NOTE | 2016-12-23 12:26 | ED.PDOC ---
General ED Provider: Dr. KELSEY SARAVIA Chief Complaint: Shortness of Air Stated Complaint: shortness of breath Time Seen by Physician: 11:00 (smokes a pk/day) Mode of Arrival: Walk-In Information Source: Patient Exam Limitations: No limitations Primary Care Provider: RAY SORENSEN Nursing and Triage Documentation Reviewed and Agree: Yes Respiratory Complaint Exam - Respiratory Complaint/Exam Symptoms Are: Still present Timing: Intermittent Initial Severity: Moderate Current Severity: Mild Location: Chest Character: Reports: Non-productive cough Aggravating: Reports: None Alleviating: Reports: None Associated Signs and Symptoms: Reports: Nasal congestion. Denies: Rapid breathing, Dyspnea, Fever, Chills, Chest pain, Pleuritic chest pain, Wheezing, Hemoptysis, Dizziness, Calf pain, Calf swelling, Edema, URI, Hoarseness, Sinus discomfort, Vomiting, Sore throat, Weight loss, Decreased oral intake, Increased thirst, Increased appetite, Increased urination Related History: Reports: Similar episode History of Healthcare-Acquired Pneumonia: No Pulmonary Embolism Risk Factors: Smoking Cardiac Risk Factors: Reports: None, Smoking Pseudomonas Risk Factors: Reports: Chronic Lung Disease Tuberculosis Risk Factors: Reports: Corticosteriod use (8mg) Status Asthmaticus Risk Factors: Reports: None Home Oxygen Use: Yes (2ml most of the time he smokes alot) Recent Stress Test: No Recent Echo/LV Function: No Current Antibiotic Use: No Current Asthma Medication Use: No Respiratory Distress: None Inadequate Respiratory Effort: No Dysphagia Present: No Stridor Present: No JVD Present: No Accessory Muscle Use: No Retractions: Not Present Diminished Breath Sounds: No Sinus Tenderness: None Grunting Respirations: No Kussmaul Respirations: No Differential Diagnoses: Pneumonia, Bronchitis Review of Systems - Review Of Systems Constitutional: Reports: No symptoms Eyes: Reports: No symptoms Ears, Nose, Mouth, Throat: Reports: No symptoms Respiratory: Reports: Cough, Wheezing Cardiac: Reports: No symptoms GI: Reports: No symptoms : Reports: No symptoms Musculoskeletal: Reports: No symptoms Skin: Reports: No symptoms Neurological: Reports: No symptoms Endocrine: Reports: No symptoms Hematologic/Lymphatic: Reports: No symptoms All Other Systems: Reviewed and Negative Past Medical History - Past Medical History Previously Healthy: No Endocrine: Reports: None Cardiovascular: Reports: None, Unknown (fast heart rate) Respiratory: Reports: COPD Hematological: Reports: None Gastrointestinal: Reports: None, Gallstones Genitourinary: Reports: Kidney stones Neuro/Psych: Reports: None Musculoskeletal: Reports: None Cancer: Reports: None - Surgical History General Surgical History: Reports: Stent (CARDIAC STENT X 2), Other ( PARATHYROID SX , SX FOR KIDNEY STONE), Unknown - Family History Family History: Reports: Unknown - Social History Smoking Status: Current every day smoker, Heavy tobacco smoker Hx Substance Use: No Alcohol Screening: None Physical Exam - Physical Exam Appearance: Well-appearing, No pain distress, Well-nourished Eyes: MORGAN, EOMI, Conjunctiva clear ENT: Ears normal, Nose normal, Oropharynx normal Respiratory: Rhonchi, Wheezes Cardiovascular: RRR, Pulses normal, No rub, No murmur GI/: Soft, Nontender, No masses, Bowel sounds normal, No Organomegaly Musculoskeletal: Normal strength, ROM intact, No edema, No calf tenderness Skin: Warm, Dry, Normal color Neurological: Sensation intact, Motor intact, Reflexes intact, Cranial nerves intact, Alert, Oriented Psychiatric: Affect appropriate, Mood appropriate Interpretation - Radiology Interpretation Radiology Interpretation By: Radiologist Radiology Results: No acute changes Re-Evaluation - Re-Evaluation Time of Re-Evaluation: 11:40 Status: Improved Vital Signs Stable: Yes Pain Level: 0 Appearance: NAD Lungs: Clear Skin: Warm and Dry Neuro: Alert and Oriented X3 CV: RRR - Re-Evaluation Time of Re-Evaluation: 12:26 Status: Improved Vital Signs Stable: Yes Pain Level: 0 Appearance: NAD Skin: Warm and Dry Neuro: Alert and Oriented X3 CV: RRR Critical Care Note - Critical Care Note Total Time (mins): 0 Course - Course Hematology/Chemistry: 12/23/16 11:10 12/23/16 11:10 Orders, Labs, Meds: Lab Review 12/23/16 12/23/16 12/23/16 11:04 11:10 11:10 WBC 8.58 RBC 4.44 L Hgb 13.9 L Hct 42.2 MCV 95.0 H MCH 31.3 H MCHC 32.9 RDW Coeff of Marleni 13.4 Plt Count 182 Immature Gran % (Auto) 0.3 Neut % (Auto) 75.1 Lymph % (Auto) 17.2 [place] % (Auto) 5.6 Eos % (Auto) 1.5 Baso % (Auto) 0.3 Immature Gran # (Auto) 0.0 Neut # 6.4 Lymph # 1.5 [place] # 0.5 Eos # 0.1 Baso # 0.0 Puncture Site Rrad O2 Saturation 96.0 ABG pH 7.392 ABG pCO2 41.5 ABG pO2 84.0 L ABG HCO3 25.2 ABG Total CO2 26 ABG Base Excess 0 Jose L Test + O2 Delivery Device Nc Oxygen Liter Flow 2.00 Sodium 145 Potassium 3.3 L Chloride 107 Carbon Dioxide 32 H Anion Gap 9.3 BUN 27 H Creatinine 1.13 H Estimated GFR (MDRD) 63.00 BUN/Creatinine Ratio 23.89 Glucose 121 H Calcium 8.8 Total Bilirubin 0.65 AST 12 L ALT 14 Alkaline Phosphatase 52 L Total Creatine Kinase 26 Troponin I < 0.0100 Total Protein 6.4 Albumin 3.4 Globulin 3.0 Albumin/Globulin Ratio 1.13 Orders Category Date Time Status ABG DRAW REQUEST Stat CARDIO 12/23/16 11:04 Ordered EKG-(ED ONLY) Stat CARDIO 12/23/16 11:03 Ordered NEBULIZER TREATMENT Stat CARDIO 12/23/16 11:04 Ordered ED IV/MEDIPORT/POWERPORT .ONCE EMERGENCY 12/23/16 11:03 Ordered ABG Stat LAB 12/23/16 11:04 Ordered CBC W/ AUTO DIFF Stat LAB 12/23/16 11:03 Ordered COMPREHENSIVE METABOLIC PANEL Stat LAB 12/23/16 11:03 Ordered CREATINE KINASE Stat LAB 12/23/16 11:03 Ordered TROPONIN I Stat LAB 12/23/16 11:03 Ordered 0.9 % Sodium Chloride [Saline Flush] MEDS 12/23/16 11:03 Ordered 1 syr IVF PRN PRN Ipratropium/Albuterol Neb [Duoneb] MEDS 12/23/16 11:04 Stat 1 vial NEB ONCE STA Methylprednisolone Sod Succ/Pf [Solu-Medrol 125 mg] MEDS 12/23/16 11:03 Stat 125 mg IVP ONCE STA CHEST, 1V AP ONLY Stat RADS 12/23/16 11:03 Ordered Medications Generic Name Dose Route Start Last Admin Trade Name Freq PRN Reason Stop Dose Admin Sodium Chloride 1 syr 12/23/16 11:03 12/23/16 11:28 Saline Flush IVF 1 syr PRN PRN Administration To flush IV Discontinued Medications Generic Name Dose Route Start Last Admin Trade Name Freq PRN Reason Stop Dose Admin Albuterol/Ipratropium 1 vial 12/23/16 11:04 12/23/16 11:27 Duoneb NEB 12/23/16 11:05 1 vial ONCE STA Administration Methylprednisolone Sodium Succinate 125 mg 12/23/16 11:03 12/23/16 11:27 Solu-Medrol 125 Mg IVP 12/23/16 11:04 125 mg ONCE STA Administration Vital Signs: Temp Pulse Resp BP Pulse Ox 12/23/16 10:52 97.2 F L 75 24 152/79 H 95 Departure - Departure Time of Disposition: 12:26 Disposition: HOME SELF-CARE Discharge Problem: COPD exacerbation Instructions: COPD (Chronic Obstructive Pulmonary Disease) (ED), Emphysema (ED) , Chronic Lung Disease and Infection Prevention (ED), Chronic Bronchitis (ED), How Your Lungs Work (ED) Condition: Good Pt referred to PMD for follow-up: Yes Additional Instructions: Please call your Family Physician as soon as possible to schedule a follow-up appointment. Allergies/Adverse Reactions: Allergies nitroglycerin Adverse Reaction (Intermediate, Verified 12/23/16 10:57) Unknown zolpidem [From Ambien] Adverse Reaction (Intermediate, Verified 12/23/16 10:57) Dizziness PATIENT WAS CONFUSED, HALLUCINATED, AND WAS AGITATED. Home Medications: Ambulatory Orders Metoprolol Succinate [Toprol Xl] 25 mg PO DAILY 12/31/13 Omeprazole Magnesium [Prilosec Otc] 20 mg PO DAILY 12/31/13 Simvastatin [Zocor] 40 mg PO DAILY 12/31/13 Diltiazem HCl [Cardizem Cd] 120 mg PO DAILY 02/06/16 Albuterol Sulfate [Proair Hfa] 2 puff IH Q4H PRN 12/23/16 Aspirin [Aspirin Chewable] 81 mg PO DAILYWM 12/23/16 Budesonide/Formoterol Fumarate [Symbicort 160-4.5 Mcg Inhaler] 2 puff IH BID 12/01 Calcium Carbonate/Vitamin D3 [Calcium 600 + Vit D 400 Tablet] 1 each PO BID 12/01 Ipratropium/Albuterol Neb [Duoneb] 1 vial NEB RTQ4H PRN 12/23/16 Prednisone 3 mg PO DAILYWM 12/23/16 Prednisone 5 mg PO DAILYWM 12/23/16
== END 2016-12-23 12:35 | disposition home or self-care (01) ==
LOC: ED 10:52
DX: J44.1 Chronic obstructive pulmonary disease with (acute) exacerbation (principal); F17.210 Nicotine dependence, cigarettes, uncomplicated; Z79.899 Other long term (current) drug therapy
CPT/HCPCS: 36415; 80053; 82550; 82803; 84484; 85025; 93005; 93010; 94640; 96374; 99283

== ENCOUNTER 2017-03-25 06:49 | Day surgery (SDC) ==
[2017-03-25] MEDS ORDERED: DIPRIVAN 20 ML VIAL IVP ONE (08:56)
[2017-03-25] MEDS ORDERED: LIDOCAINE HCL 2% LUER-JET ONE (08:56)
--- NOTE | 2017-03-26 11:18 | OP ---
INDICATIONS FOR PROCEDURE: 76-year-old gentleman with a past history of adenomatous polyps, colonoscopy three years ago presents for colonoscopy exam. MEDICATIONS: SEE ANESTHESIA NOTES. PROCEDURE: COLONOSCOPY, SNARE POLYPECTOMY, ENDOCLIP THERAPY. REPORT: The risks, benefits, alternatives and limitations were discussed in detail with the patient. Informed consent was obtained. After adequate sedation was achieved, a digital rectal exam revealed good tone, no masses. The colonoscope was introduced into the rectum and advanced under direct visual guidance to the cecum. The cecum was identified by the appendiceal orifice and IC valve. In the cecum there were two polyps, one was about 5 to 6 mm in size and the other one was 8 to 9 mm in size. Both removed by snare technique. The larger one had a couple drops of blood oozing from the base thus I chose to close the polypectomy site with an endoclip. I then slowly withdrew the scope in a circumferential manner examining the mucosa quite carefully. I looked on the proximal and distal side of folds and flexures as best as possible. At the distal side of the hepatic flexure there was a 10 mm semi sessile polyp that I was able to remove by snare technique. In the distal transverse colon there was a 5 mm polyp that was sessile. I removed this by snare technique. This polyp was not retrieved. There was diverticulosis scattered throughout the sigmoid. On retroflex view of the anal canal there was 1+ internal hemorrhoids. No other abnormalities were noted. The prep was adequate. The withdrawal time was 14 minutes and 44 seconds. The patient tolerated the procedure well with stable vital signs and pulse oximetry throughout. IMPRESSION: 1. FOUR (4) POLYPS SUCCESSFULLY REMOVED ABOVE 2. DIVERTICULOSIS 3. 1+ INTERNAL HEMORRHOIIDS RECOMMENDATIONS: 1. High fiber diet. 2. Office visit as needed. 3. Await pathology results. 4. Given his advanced age and health, I recommend future colonoscopies be considered on an as needed only basis. CC: DR. EDU SOTO
[2017-03-26 13:20] VITALS: BP 142/66; TEMP 98.6
== END 2017-03-25 10:20 | disposition home or self-care (01) ==
LOC: SURG 06:49
PROVIDERS: ATTEND Internal Medicine Gastroenterology
DX: Z09 Encounter for follow-up examination after completed treatment for conditions other than malignant neoplasm (principal); Z86.010 Personal history of colon polyps; D12.0 Benign neoplasm of cecum; D12.3 Benign neoplasm of transverse colon; K57.30 Diverticulosis of large intestine without perforation or abscess without bleeding; K64.8 Other hemorrhoids

== ENCOUNTER 2017-07-24 10:02 | Outpatient (CLI) ==
[2017-07-24] MEDS ORDERED: PROLIA SUBCUT STA (10:13)
[2017-07-24 10:15] VITALS: BP 160/83; TEMP 97.9
== END 2017-07-24 10:03 | disposition home or self-care (01) ==
LOC: OPMED 10:02
PROVIDERS: ATTEND Family Medicine
DX: M81.0 Age-related osteoporosis without current pathological fracture (principal)
CPT/HCPCS: 96372

== ENCOUNTER 2018-01-26 19:12 | Outpatient (CLI) | payer OTHER | END 2018-01-26 19:30 | disposition short-term general hospital (02) | LOC: AMBL 19:12 | PROVIDERS: ATTEND Internal Medicine Geriatric Medicine | DX: I21.19 ST elevation (STEMI) myocardial infarction involving other coronary artery of inferior wall (principal); R07.9 Chest pain, unspecified; R06.02 Shortness of breath; R61 Generalized hyperhidrosis; Z95.5 Presence of coronary angioplasty implant and graft ==

== ENCOUNTER 2018-03-24 17:12 | Emergency (ER) | payer OTHER ==
[2018-03-24 17:19] VITALS: BP 140/62; TEMP 98.7; BMI 19.0
--- NOTE | 2018-03-24 17:55 | ED.PDOC ---
General ED Provider: Dr. GAIL BOWEN Chief Complaint: Nosebleed Stated Complaint: Nose bleed. Wears continous oxygen and believes he may have scratched his nasal region resulting in bleeding. Recently starte using blood thinners due to recent Cardiac Event/TX. Bleeding has now been controlled with applying direct pressue Time Seen by Physician: 17:40 Mode of Arrival: Wheelchair Information Source: Patient Exam Limitations: No limitations Primary Care Provider: RAY SORENSEN Nursing and Triage Documentation Reviewed and Agree: Yes Does patient meet sepsis criteria?: No System Inflammatory Response Syndrome: Not Applicable Sepsis Protocol: For patient's 13 years and over: Temp is 96.8 and below OR 101 and greater Pulse >90 BPM Resp >20/minute Acutely Altered Mental Status Are patient's symptoms suggestive of a new infection, such as: -Pneumonia -Skin, Soft Tissue -Endocarditis -UTI -Bone, Joint Infection -Implantable Device -Acute Abdominal Infection -Wound Infection -Meningitis -Blood Stream Catheter Infection -Unknown Review of Systems - Review Of Systems Constitutional: Reports: No symptoms Eyes: Reports: No symptoms Ears, Nose, Mouth, Throat: Reports: Nose discharge, Epistaxis Respiratory: Reports: No symptoms Cardiac: Reports: No symptoms GI: Reports: No symptoms : Reports: No symptoms Musculoskeletal: Reports: No symptoms Skin: Reports: No symptoms Neurological: Reports: No symptoms Endocrine: Reports: No symptoms Hematologic/Lymphatic: Reports: No symptoms All Other Systems: Reviewed and Negative Past Medical History - Past Medical History Previously Healthy: No Endocrine: Reports: None Cardiovascular: Reports: None, Unknown (fast heart rate) Respiratory: Reports: COPD Hematological: Reports: None Gastrointestinal: Reports: None, Gallstones Genitourinary: Reports: Kidney stones Neuro/Psych: Reports: None Musculoskeletal: Reports: None Cancer: Reports: None - Surgical History General Surgical History: Reports: Stent (CARDIAC STENT X 2), Other ( PARATHYROID SX , SX FOR KIDNEY STONE), Unknown - Family History Family History: Reports: Unknown - Social History Smoking Status: Current every day smoker, Heavy tobacco smoker Hx Substance Use: No Alcohol Screening: None Physical Exam - Physical Exam Appearance: Well-appearing, No pain distress, Well-nourished Eyes: MORGAN, EOMI, Conjunctiva clear ENT: Ears normal, Oropharynx normal, Epistaxis Respiratory: Airway patent, Breath sounds clear, Breath sounds equal, Respirations nonlabored Cardiovascular: RRR, Pulses normal, No rub, No murmur GI/: Soft, Nontender, No masses, Bowel sounds normal, No Organomegaly Musculoskeletal: Normal strength, ROM intact, No edema, No calf tenderness Skin: Warm, Dry, Normal color Neurological: Sensation intact, Motor intact, Reflexes intact, Cranial nerves intact, Alert, Oriented Psychiatric: Affect appropriate, Mood appropriate Critical Care Note - Critical Care Note Total Time (mins): 0 Course - Course Hematology/Chemistry: 03/24/18 18:04 03/24/18 18:04 Orders, Labs, Meds: Lab Review 03/24/18 03/24/18 03/24/18 18:04 18:04 18:04 WBC 8.17 RBC 3.92 L Hgb 12.2 L Hct 38.3 L MCV 97.7 H MCH 31.1 H MCHC 31.9 RDW Coeff of Marleni 13.9 Plt Count 182 Immature Gran % (Auto) 0.7 Neut % (Auto) 91.4 Lymph % (Auto) 4.7 L [place] % (Auto) 2.9 Eos % (Auto) 0.2 Baso % (Auto) 0.1 Immature Gran # (Auto) 0.1 Neut # (Auto) 7.5 H Lymph # (Auto) 0.4 L [place] # (Auto) 0.2 L Eos # (Auto) 0.0 Baso # (Auto) 0.0 PT 9.9 INR 0.99 APTT 23.3 L Sodium 140.4 Potassium 4.33 Chloride 103.7 Carbon Dioxide 33.5 H Anion Gap 7.53 BUN 23.6 H Creatinine 1.08 Estimated GFR (MDRD) 66.00 BUN/Creatinine Ratio 21.85 Glucose 111.4 H Calcium 8.52 Orders Category Date Time Status BMP [BASIC METABOLIC PANEL] Stat LAB 03/24/18 18:04 Completed CBC W/ AUTO DIFF Stat LAB 03/24/18 18:04 Completed PARTIAL THROMBOPLASTIN TIME Stat LAB 03/24/18 18:04 Completed PT WITH INR Stat LAB 03/24/18 18:04 Completed Vital Signs: Temp Pulse Resp BP Pulse Ox 03/24/18 17:12 98.7 F 80 26 H 140/62 95 EBEN Risk Score EBEN Risk Score: Risk Score Odds of by 30D 0 0.1 (0.1-0.2) 1 0.3 (0.2-0.3) 2 0.4 (0.3-0.5) 3 0.7 (0.6-0.9) 4 1.2 (1.0-1.5) 5 2.2 (1.9-2.6) 6 3.0 (2.5-3.6) 7 4.8 (3.8-6.1) Departure - Departure Time of Disposition: 18:30 Disposition: HOME SELF-CARE Discharge Problem: Anterior epistaxis Instructions: Nosebleed (ED) Condition: Good Pt referred to PMD for follow-up: Yes IPMP verified?: No Additional Instructions: Use ocean Nasal spray Allergies/Adverse Reactions: Allergies nitroglycerin Adverse Reaction (Intermediate, Verified 03/24/18 17:19) Unknown zolpidem [From Ambien] Adverse Reaction (Intermediate, Verified 03/24/18 17:19) Dizziness PATIENT WAS CONFUSED, HALLUCINATED, AND WAS AGITATED. meperidine [From Demerol] Adverse Reaction (Verified 03/24/18 17:20) Home Medications: Ambulatory Orders Metoprolol Succinate [Toprol Xl] 25 mg PO DAILY 12/31/13 Omeprazole Magnesium [Prilosec Otc] 20 mg PO DAILY 12/31/13 Diltiazem HCl [Cardizem Cd] 120 mg PO DAILY 02/06/16 Aspirin [Aspirin Chewable] 81 mg PO DAILYWM 12/23/16 Budesonide/Formoterol Fumarate [Symbicort 160-4.5 Mcg Inhaler] 2 puff IH BID 12/01 Calcium Carbonate/Vitamin D3 [Calcium 600 + Vit D 400 Tablet] 1 each PO BID 12/01 Ipratropium/Albuterol Neb [Duoneb] 1 vial NEB RTQ4H PRN 12/23/16 Prednisone 3 mg PO DAILYWM 12/23/16 Prednisone 5 mg PO DAILYWM 12/23/16 Atorvastatin Calcium [Lipitor] 40 mg PO DAILY 03/24/18 Ciclopirox [Penlac] 6.6 ml TP DAILY 03/24/18 Lisinopril [Zestril] 2.5 mg PO DAILY 03/24/18 Ticagrelor [Brilinta] 90 mg PO BID 03/24/18 Disposition Discussed With: Patient, Family EENT Complaint Exam - Nasal Complaint/Exam Onset/Duration: Earlier today Symptoms Are: Resolved Timing: Intermittent Initial Severity: Moderate Current Severity: None Location: Right Character: Light bleeding Aggravating: Reports: None Alleviating: Reports: Pressure Associated Signs and Symptoms: Reports: Nasal congestion, Nasal discharge Related History: Reports: Similar episode, Platelet inhibitors Nasal Surgical History: Reports: None Bleeding Present At: Left nostril Foreign Body Present: No Septal Hematoma: No Differential Diagnoses: Epistaxis (RESOLVED)
== END 2018-03-24 18:50 | disposition home or self-care (01) ==
LOC: ED 17:12
DX: R04.0 Epistaxis (principal); Z79.01 Long term (current) use of anticoagulants; Z99.81 Dependence on supplemental oxygen; I21.9 Acute myocardial infarction, unspecified; F17.210 Nicotine dependence, cigarettes, uncomplicated; Z95.5 Presence of coronary angioplasty implant and graft; Z79.899 Other long term (current) drug therapy
CPT/HCPCS: 36415; 80048; 85025; 85610; 85730; 99282

== ENCOUNTER 2018-09-10 09:51 | Outpatient (CLI) | payer OTHER ==
[2018-09-10 10:16] VITALS: BP 150/73; TEMP 96
[2018-09-10] MEDS ORDERED: PROLIA SUBCUT STA (10:26)
== END 2018-09-10 09:52 | disposition home or self-care (01) ==
LOC: OPMED 09:51
PROVIDERS: ATTEND Family Medicine
DX: M81.0 Age-related osteoporosis without current pathological fracture (principal)
CPT/HCPCS: 96372